=== PATIENT | female | born 1965 | race Caucasian/White ===

== ENCOUNTER 2017-09-10 22:31 | Inpatient (IN) | payer OTHER ==
[~2017-09-10] VITALS: Ht 160 cm; Wt 58.7 kg
--- NOTE | ~2017-09-10 | PR ---
[place], [place] PROGRESS NOTE [facility]: [id number] UNIT #: [id number] ROOM: 407 DOCTOR: CHRISSIE FLEIMNG,KATIE RadhaEDUARDO) BIRTHDATE: [birth year] DOS: 09/12/2017 At the present time, this patient is quite agitated and frustrated because she wants to return to [place], [place]. I spoke with her case folder, Marguerite Rios and explained that the patient did not meet criteria for regular admission and needs to be transported by the case folder back to [place], [place]. The case folder did agree and they were going to work on arrangements to get her out of the hospital. She does not meet inpatient psychiatric criteria at this time. Apparently, she was sent to the [facility] [place] and from there she was sent to the hospital here in [place]. She was apparently sent for drug detox. The patient is not a danger to herself or others, but has been sent here from [place], [place] and has no means of transportation to home. In my opinion, this patient may be discharged home with her case folder as soon as she is medically stable and arrangements are made. Thank you very much for this consultation. KATIE DICKENS, ED.D CM:PNTRANS [id number] KATIE DICKENS (BOB) ED.D 09/12/17 3607 interface
--- NOTE | ~2017-09-10 | PR ---
[place], [place] PROGRESS NOTE [facility]: [id number] UNIT #: [id number] ROOM: 407 DOCTOR: CHRISSIE FLEMING,KATIE GOLD) BIRTHDATE: [birth year] DOS: 09/12/2017 At this time, this patient is clearly competent to make informed healthcare decisions and is definitely not a danger to herself or others. She is extremely frustrated because she had remained in the hospital and basically wants to return home to [place], [place]. We spoke with her comp field case manager and case biosolids management technician from [facility] in [place], [place] and they were unable to send someone to the hospital, so the patient did agree to go to the [facility] in [place], [place] and the hospital would provide transportation to [place]. Again, the patient is not a danger to herself or others and did not need to be an emergency admission or a civil commitment because she was quite lucid, although she was frustrated. Thank you very much for this consult. KATIE DICKENS ED.D CM:PNBÁRBARA [id number] KATIE DICKENS (BOB) ED.D 09/12/17 2038 interface
--- NOTE | ~2017-09-10 | CON ---
[place], [place] REPORT OF CONSULTATION NAME: MONICA OLIVER UNIT #: [id number] ROOM: 407 DOCTOR: KATIE DICKENS ED.D (EDUARDO) BIRTHDATE: [birth year] DOS: 09/11/2017 HISTORY OF PRESENT ILLNESS: The patient is a 51-year-old female referred by the hospitalist for competency evaluation. At the present time, this patient is on the 4th floor at [facility]. This patient states she is and has 2 children, but she is uncertain where they are. She states she does not work and she is on SSI. She does not have a family physician. PAST MEDICAL HISTORY: Her medical history is pertinent for urinary tract infections, sepsis, metabolic encephalopathy and brief psychotic disorder. MEDICATIONS: This patient had been on Neurontin and tramadol. SOCIAL HISTORY: She states that she drinks less than 1 beer per day and smokes 1/2 pack of cigarettes per day. She states she had recently been using heroin. This patient states she is in a hospital, but is uncertain of the city where the hospital is. She did know it was 2017 and she states President Jacklyn is the information services vice president. When I asked her about Kristopher Santillan, she did recognize his name and she said they were both president. Apparently, this patient had been living at [facility] in [place], [place]. She does have a embedded case manager, Marguerite Rios, ([phone]). She states that she had been living in [place] and somehow ended up here at this hospital. Her story is quite confusing and I am not certain of the validity of what she is telling me. At the present time, she denies any suicidal ideation or plan, but is clearly somewhat delusional and is presently pink slipped to the hospital and that pink slip should remain in effect until we determine where she is from and where she is going. She possibly will go back to the [facility] program where she apparently was short term resident. She is extremely abusive and angry at times, but is clearly not able to make rational informed decisions at this time. I will follow up with her embedded case manager tomorrow, although I did leave the embedded case manager my telephone number. I will also converse with case management services here at the hospital. DIAGNOSIS: Brief psychotic disorder. RECOMMENDATION: This patient's pink slip should remain in effect until we determine where she has been living and where she is going upon discharge because she is clearly not able to provide self-care. Thank you very much for this consult. [place], [place] REPORT OF CONSULTATION NAME: MONICA OLIVER UNIT #: [id number] ROOM: [facility] DOCTOR: KATIE DICKENS ED.D) BIRTHDATE: [birth year] KATIE DICKENS ED.D CM:CONSTR:REPORT OF CONSULTATION [id number] 09/12/17 0516 interface
[2017-09-10 22:35] VITALS: BP 137/81
[2017-09-10 22:48] LABS: BASO # 0.1 10*3/uL (0.0-0.1); BASO % 0.2 % (0.0-1.0); EOS # 0.4 10*3/uL (0.0-0.4); EOS % 1.9 % (1.0-4.0); HEMATOCRIT 38.9 % (37.0-47.0); HEMOGLOBIN 12.5 g/dl (12.0-16.0); LYMPH % 9.6 % (27.0-41.0); MEAN CELL VOLUME 92.4 fl (81.0-99.0); MEAN CORPUSCULAR HGB 29.7 pg (27.0-31.0); MEAN CORPUSCULAR HGB CONC 32.1 g/dl (33.0-37.0); MEAN PLATELET VOLUME 10.1 fl (9.6-12.3); MONO # 1.4 10*3/uL (0.1-1.0); MONO % 6.6 % (3.0-9.0); NEUT # 16.8 10*3/uL (2.3-7.9); NEUT % 81.3 % (47.0-73.0); PLATELET COUNT AUTOMATED 366 10*3/uL (130-400); RED BLOOD COUNT 4.21 10*6/uL (4.10-5.10); RED CELL DISTRI WIDTH 13.9 % (0-14.5); WHITE BLOOD COUNT 20.6 10*3/uL (4.8-10.8)
[2017-09-10 23:06] LABS: ACETAMINOPHEN (TYLENOL) 4.3 ug/ml (10-30); ALBUMIN 3.8 gm/dl (3.1-4.5); ALKALINE PHOSPHATASE 113 U/L (45-117); BUN 16 mg/dl (7-24); CHLORIDE 102 mmol/L (98-107); CREATININE 0.71 mg/dL (0.55-1.02); POTASSIUM 3.5 mmol/L (3.5-5.1); SGPT/ALT 134 U/L (12-78); SODIUM 139 mmol/L (136-145); TOTAL PROTEIN 7.1 gm/dL (6.4-8.2)
[2017-09-10 23:08] LABS: ETHYL ALCOHOL < 3.0 mg/dl (<3)
[2017-09-10 23:11] LABS: SGOT/AST 71 IU/L (3-35)
[2017-09-11] VITALS (9 sets, daily range): BP systolic 106–148; BP diastolic 42–95
[2017-09-11 01:17] LABS: BILIRUBIN NEGATIVE (NEGATIVE); BLOOD NEGATIVE (NEGATIVE); CLARITY CLEAR (CLEAR); COLOR YELLOW (YELLOW); GLUCOSE NEGATIVE (NEGATIVE); KETONE NEGATIVE (NEGATIVE); LEUKO ESTERASE TRACE (NEGATIVE); NITRITE NEGATIVE (NEGATIVE); PH 5.5 (5.0-9.0)
[2017-09-11 01:28] LABS: URINE AMPHETAMINES < 1000 (1000ng/ml); URINE BARBITURATES < 200 (200ng/ml); URINE BENZODIAZEPINES < 200 (200ng/ml); URINE CANNABINOIDS (THC) < 50 (50ng/ml); URINE COCAINE < 300 (300ng/ml); URINE METHADONE < 300 (300ng/ml); URINE OPIATES < 300 (300ng/ml)
[2017-09-11 01:29] LABS: URINE PHENCYCLIDINE < 25 (25ng/ml)
[2017-09-11 01:30] LABS: BACTERIA TRACE; EPITHELIAL CELLS 40-45
[2017-09-11 04:02] LABS: CPK 766 U/L (26-192); TROPONIN I < 0.015 ng/ml (<0.045)
[2017-09-11 06:44] LABS: ALBUMIN 2.9 gm/dl (3.1-4.5); ALKALINE PHOSPHATASE 95 U/L (45-117); BUN 11 mg/dl (7-24); CHLORIDE 107 mmol/L (98-107); CHOLESTEROL 165 mg/dL (<200); CREATININE 0.54 mg/dL (0.55-1.02); PHOSPHOROUS 3.9 mg/dL (2.5-4.9); POTASSIUM 3.7 mmol/L (3.5-5.1); SGOT/AST 50 IU/L (3-35); SGPT/ALT 109 U/L (12-78); SODIUM 141 mmol/L (136-145); TRIGLYCERIDES 62 mg/dl (<150); VLDL CHOLESTEROL 12 mg/dL (6-40)
[2017-09-11 06:48] LABS: HDL CHOLESTEROL 55 mg/dl (40-60); LDL CHOLESTEROL 98 mg/dL (9-159); TOTAL PROTEIN 6.2 gm/dL (6.4-8.2)
[2017-09-11 07:01] LABS: BASO # 0.1 10*3/uL (0.0-0.1); BASO % 0.3 % (0.0-1.0); EOS # 0.6 10*3/uL (0.0-0.4); EOS % 3.1 % (1.0-4.0); LYMPH # 2.6 10*3/uL (1.3-4.4); LYMPH % 14.2 % (27.0-41.0); MEAN CELL VOLUME 94.8 fl (81.0-99.0); MEAN CORPUSCULAR HGB 29.9 pg (27.0-31.0); MEAN CORPUSCULAR HGB CONC 31.6 g/dl (33.0-37.0); MEAN PLATELET VOLUME 10.5 fl (9.6-12.3); MONO # 1.1 10*3/uL (0.1-1.0); MONO % 6.3 % (3.0-9.0); NEUT # 13.6 10*3/uL (2.3-7.9); NEUT % 75.6 % (47.0-73.0); PLATELET COUNT AUTOMATED 374 10*3/uL (130-400); RED BLOOD COUNT 4.01 10*6/uL (4.10-5.10); RED CELL DISTRI WIDTH 13.9 % (0-14.5); WHITE BLOOD COUNT 18.1 10*3/uL (4.8-10.8)
[2017-09-11 07:12] LABS: ACT PARTIAL THROMBO TIME 25.5 SECONDS (20.8-31.5); INTERNATIONAL NORM RATIO 0.9 (2.0-3.5)
[2017-09-11 07:47] LABS: VITAMIN D, 25-HYDROXY 18.9 ng/mL (30-100)
[2017-09-12 00:18] VITALS: BP 111/66
[2017-09-12 06:11] LABS: HEPATITIS B SURFACE AG Negative (Negative); HEPATITIS C VIRUS ANTIBODY <0.1 s/co (0.0-0.9)
[2017-09-12 08:00] VITALS: BP 142/92
== END 2017-09-12 14:17 | disposition left against medical advice (07) | DRG 871 ==
LOC: ED 22:31 → 4E 09-11 02:44 → EDHOLD 09-11 02:44 → 4E 09-11 03:05
PROVIDERS: Internal Medicine Nephrology; Student in an Organized Health Care Education/Training Program
DX: A41.9 Sepsis, unspecified organism (principal); G93.41 Metabolic encephalopathy; E44.0 Moderate protein-calorie malnutrition; N39.0 Urinary tract infection, site not specified; F23 Brief psychotic disorder; R65.20 Severe sepsis without septic shock; D72.810 Lymphocytopenia; R73.9 Hyperglycemia, unspecified; K76.0 Fatty (change of) liver, not elsewhere classified; R74.0 Nonspecific elevation of levels of transaminase and lactic acid dehydrogenase [LDH]; Z68.22 Body mass index [BMI] 22.0-22.9, adult; Z59.0 Homelessness; Z88.8 Allergy status to other drugs, medicaments and biological substances